=== PATIENT | male | born 1960 | race Two or more races ===

== ENCOUNTER 2022-11-16 17:17 | Emergency (ER) | payer MEDICAID, OTHER | END 2022-11-16 18:19 | disposition left against medical advice (07) | LOC: ER 17:17 | DX: F10.129 Alcohol abuse with intoxication, unspecified (principal); Z53.21 Procedure and treatment not carried out due to patient leaving prior to being seen by health care provider; Y90.9 Presence of alcohol in blood, level not specified ==